=== PATIENT | female | born 1965 | race African-American/Black ===

== ENCOUNTER 2018-10-29 08:17 | Day surgery (SDC) | payer OTHER ==
[2018-10-22 09:11] LABS: HEMATOCRIT 33.4 % (36.0-47.0); HEMOGLOBIN 10.7 g/dL (12.0-15.5); MEAN CORPUSCULAR HEMOGLOBIN 24.7 pg (27.0-33.4); MEAN CORPUSCULAR HGB CONC 31.9 g/dL (32.0-36.0); MEAN CORPUSCULAR VOLUME 77 fl (80-97); PLATELET COUNT 363 10^3/uL (150-450); RED BLOOD COUNT 4.31 10^6/uL (3.72-5.28); RED CELL DISTRIBUTION WIDTH 15.2 % (11.5-14.0); WHITE BLOOD COUNT 7.3 10^3/uL (4.0-10.5)
[2018-10-22 09:17] LABS: APPEARANCE,URINE CLEAR; BILIRUBIN,URINE NEGATIVE (NEGATIVE); COLOR,URINE YELLOW; GLUCOSE, URINE NEGATIVE (NEGATIVE); KETONES,URINE NEGATIVE (NEGATIVE); LEUKOCYTE ESTERASE,URINE NEGATIVE (NEGATIVE); NITRITE,URINE NEGATIVE (NEGATIVE); PROTEIN,URINE 30 mg/dL (NEGATIVE); URINE SPECIFIC GRAVITY 1.018; UROBILINOGEN,URINE NEGATIVE mg/dL (<2.0)
--- NOTE | 2018-10-22 09:36 | RADIOLOGY REPORT (SQ) ---
EXAM DESCRIPTION: CHEST PA/LATERAL COMPLETED DATE/TIME: 10/22/2018 9:24 am REASON FOR STUDY: PRE-OP COMPARISON: None. EXAM PARAMETERS: NUMBER OF VIEWS: two views TECHNIQUE: Digital Frontal and Lateral radiographic views of the chest acquired. RADIATION DOSE: NA LIMITATIONS: none FINDINGS: LUNGS AND PLEURA: No opacities, masses or pneumothorax. No pleural effusion. MEDIASTINUM AND HILAR STRUCTURES: No masses or contour abnormalities. HEART AND VASCULAR STRUCTURES: Heart normal size. No evidence for failure. BONES: No acute findings. HARDWARE: None in the chest. OTHER: No other significant finding. IMPRESSION: NO SIGNIFICANT RADIOGRAPHIC FINDING IN THE CHEST. TECHNICAL DOCUMENTATION: JOB ID: [id number] [employer]- All Rights Reserved Reading location - IP/workstation name: [email or web address]
[2018-10-22 09:39] LABS: ANION GAP 12 (5-19); BLOOD UREA NITROGEN 26 mg/dL (7-20); CARBON DIOXIDE 22 mmol/L (22-30); CHLORIDE 113 mmol/L (98-107); GLUCOSE 78 mg/dL (75-110); POTASSIUM 4.3 mmol/L (3.6-5.0); SODIUM 146.6 mmol/L (137-145)
--- NOTE | 2018-10-22 20:48 | EKG REPORT ---
SEVERITY:- ABNORMAL ECG - SINUS RHYTHM LEFT VENTRICULAR HYPERTROPHY : Confirmed by: Hamida Lemus MD 22-Oct-2018 20:48:16
[~2018-10-29 08:17] MED LIST: CEFAZOLIN 2 GM/D5W RTU 2 GM/50 ML RTUPB IV PRN; LACTATED RINGERS 1000 ML IV PRN; LIDOCAINE 0.5% INJ-PF (5 MG/ML) 50 ML SDV SUBCUT PRN
[2018-10-29] MEDS ORDERED: CEFAZOLIN 2 GM/D5W RTU 2 GM/50 ML RTUPB IV ONE (08:55)
[2018-10-29] MEDS ORDERED: BUPIVACAINE HCL 0.5 % INJ/PF 30 ML SDV ONE (09:04)
[2018-10-29] MEDS ORDERED: LIDOCAINE 1%/EPINEPHRINE INJ 20 ML VIAL ONE (09:04)
[2018-10-29] MEDS ORDERED: FENTANYL CITRATE INJ/PF 100 MCG/2 ML AMPUL ONE (10:53)
[2018-10-29] MEDS ORDERED: LIDOCAINE 2% INJ-PF (20 MG/ML) 10 ML AMPUL ONE (10:53)
[2018-10-29] MEDS ORDERED: MIDAZOLAM 2 MG/2 ML INJ ONE (10:54)
[2018-10-29] MEDS ORDERED: ACETAMINOPHEN 1,000 MG/100 ML RTUPB IV ONE (10:54)
[2018-10-29] MEDS ORDERED: PROPOFOL INJ 200 MG/20 ML VIAL IV ONE ×2 (10:54)
[2018-10-29] MEDS ORDERED: PROMETHAZINE HCL INJ 25 MG/1 ML VIAL IV PRN ×2 (11:38)
[2018-10-29] MEDS ORDERED: FENTANYL CITRATE INJ/PF 100 MCG/2 ML AMPUL IV PRN ×3 (11:38)
[2018-10-29] MEDS ORDERED: DIPHENHYDRAMINE HCL 50 MG/ML VIAL IV PRN (11:38)
[2018-10-29] MEDS ORDERED: OXYCODONE-ACETAMINOPHEN 5-325 MG TABLET PO PRN ×2 (11:38)
[2018-10-29] MEDS ORDERED: MEPERIDINE HCL/PF INJ 25 MG/1 ML DISP.SYRIN IV PRN (11:38)
[2018-10-29] MEDS ORDERED: ONDANSETRON HCL INJ/PF 4 MG/2 ML SDV IV PRN (11:38)
--- NOTE | 2018-10-29 11:51 | Discharge Summary ---
Discharge Summary (SDC) - Discharge Final Diagnosis: Right medial meniscal tear Date of Surgery: 10/29/18 Discharge Date: 10/29/18 Condition: Good Treatment or Instructions: Removed compressive wrap on Saturday to relieve the underlying OpSite dressing intact until he return to the office Prescriptions: Oxycodone HCl/Acetaminophen [Percocet 5-325 mg Tablet] 1 tab PO Q6 PRN #40 tablet PRN Reason: Referrals: WENDY MCCOLLUM DO [Primary Care Provider] - Discharge Diet: As Tolerated, Regular Respiratory Treatments at Home: Deep Breathing/Coughing Discharge Activity: Balance Activity w/Rest, No tub bath Home Care Assistance: None Needed Report the Following to Your Physician Immediately: Shortness of Breath, Fever over 101 Degrees, Drainage-Foul Smelling
--- NOTE | 2018-10-29 11:54 | Operative Report ---
Operative Report DATE OF SURGERY: 10/29/18 PREOPERATIVE DIAGNOSIS: Right medial meniscal tear POSTOPERATIVE DIAGNOSIS: Right medial meniscal tear. 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 Intact ACL. Lateral meniscal tear. 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 Grade 3 chondral malacia patellofemoral compartment OPERATION: Arthroscopic partial medial and lateral meniscectomy SURGEON: ARGELIA KHAN ANESTHESIA: LMAC ESTIMATED BLOOD LOSS: Minimal PROCEDURE: With the patient supine Afrin table the right lower extremities prepped and draped in a sterile fashion. The knee is insufflated with combination of Marcaine, Xylocaine, and epinephrine. Medial and lateral infrapatellar portals are created for the introduction of arthroscope and debridement of dictation. The joint is examined in systematic fashion. Because of the extensive nature of exposed subchondral bone on both the femoral and tibial surfaces in the medial compartment, a decision was made not to proceed with microfracture as I thought that the damage was far too extensive to expect microfracture make a significant improvement. Subsequently partial medial meniscectomy was performed from approximately 4:00 to 12:00 face of the dial. Partial lateral meniscectomy performed from approximately 6:00 to 12:00 in the face of the dial. The joint is again examined in systematic fashion no new findings. Instrumentation was removed. Portals reapproximated interrupted nylon. A sterile compressive dressing is applied and the patient returned to PACU in satisfactory condition.
[2018-10-29] MEDS: FENTANYL CITRATE INJ/PF 100 MCG/2 ML AMPUL ONE ×2 (12:05→12:10)
[2018-10-29] MEDS ORDERED: MORPHINE SULFATE 10 MG/ML INJ ONE (12:17)
[2018-10-29] MEDS ORDERED: OXYCODONE-ACETAMINOPHEN 5-325 MG TABLET ONE (12:57)
[2018-10-29 16:35] VITALS: BP 142/87
== END 2018-10-29 13:50 | disposition home or self-care (01) ==
LOC: OROUT 08:17
PROVIDERS: ATTEND Orthopaedic Surgery
DX: M23.200 Derangement of unspecified lateral meniscus due to old tear or injury, right knee (principal); M23.203 Derangement of unspecified medial meniscus due to old tear or injury, right knee; M22.41 Chondromalacia patellae, right knee; I10 Essential (primary) hypertension
CPT/HCPCS: 93005; 36415; 85027; 81025; 80048; 81001; 71046; 93010; 29880; J2250; J3490 ×3; J3010; J2270; J2704; J0690; J0131; 1400

== ENCOUNTER → 2020-09-20 | Outpatient (CLI) | payer OTHER | LOC: OD 12:38 | PROVIDERS: ATTEND Nurse Practitioner Family | DX: M25.561 Pain in right knee (principal) ==